=== PATIENT | male | born 1975 | race Caucasian/White ===

== ENCOUNTER 2025-05-28 12:14 | Outpatient (CLI) | payer OTHER, SELFPAY ==
--- NOTE | ~2025-05-28 | XR_ITS ---
EXAM/ PROCEDURE: XR hip RT min 2V - 05/28/2025 12:42 CDT HISTORY: 49 years old Male with Pain in right hip COMPARISON: None available TECHNIQUE: Two view(s) FINDINGS/ IMPRESSION: There are no fractures or dislocations.Joint space narrowing, subchondral sclerosis, subchondral cyst formation and osteophyte formation, compatible with moderate osteoarthritis. Reviewed, dictated and finalized at location A.
== END 2025-05-28 12:15 | disposition home or self-care (01) ==
PROVIDERS: PCP Chiropractor Rehabilitation; Visit Provider Chiropractor Rehabilitation
DX: M25.551 Pain in right hip (principal)
CPT/HCPCS: 73502